=== PATIENT | female | born 1945 | race Caucasian/White ===

== ENCOUNTER 2018-09-12 20:57 | Observation (INO) | payer MEDICARE ==
[2018-09-12 21:23] LABS: #Basophils 0.1 thou/uL (0.0-0.2); #Eosinphils 0.1 thou/uL (0.0-0.7); #Lymphocytes 2.5 thou/uL (1.20-3.40); #Neutrophils 6.7 thou/uL (1.40-6.50); %Basophils 0.8 % (0.0-1.0); %Eosinophils 0.6 % (0.0-10.0); %Monocytes 9.8 % (0.0-10.0); %Neutrophils 64.9 % (42.0-75.0); Hemoglobin 15.6 g/dL (12.0-16.0); Mean Corpuscular HGB CONC 33.4 g/dL (32.0-36.0); Mean Corpuscular Hemoglobin 30.8 pg (27.0-31.0); Mean Corpuscular Volume 92.2 fL (78.0-98.0); Mean Platelet Volume 6.2 fL (7.4-10.4); Platelet Count 257 thou/uL (130-400); Red Blood Cell (RBC) Count 5.08 mill/uL (4.20-5.40); White Blood Cell (WBC) Count 10.3 thou/uL (4.8-10.8)
[2018-09-12 21:36] LABS: ALT (SGPT) 16 U/L (8-55); AST (SGOT) 20 U/L (5-34); Albumin 4.5 g/dL (3.4-4.8); Alkaline Phosphatase 78 U/L (40-150); Anion Gap 14 mmol/L (10-20); BUN (Urea Nitrogen) 16 mg/dL (9.8-20.1); Bilirubin, Total 0.4 mg/dL (0.2-1.2); CK (CPK) 94 U/L (29-168); Calc. Creatinine Clearance 0 mL/min (70-130); Calcium 10.2 mg/dL (7.8-10.44); Carbon Dioxide 27 mmol/L (23-31); Chloride 98 mmol/L (98-107); Estimated GFR-MDRD 43; Globulin 3.1 g/dL (2.4-3.5); Glucose 132 mg/dL (83-110); Lipase 66 U/L (8-78); Potassium 3.4 mmol/L (3.5-5.1); Protein, Total 7.6 g/dL (6.0-8.3); Sodium 136 mmol/L (136-145)
[2018-09-12 21:38] LABS: CKMB 2.1 ng/mL (0-6.6); Troponin I Less than 0.010 ng/mL (< 0.028)
[2018-09-12] MEDS ORDERED: Metoprolol Tartrate 5 MG/5 ML VIAL ONE (22:17)
[2018-09-12 22:44] LABS: Bacteria/HPF None Seen HPF (None Seen); Bilirubin Negative (Negative); Blood, Urine Trace (Negative); Clarity Clear (Clear); Crystals/HPF None Seen HPF (Negative); Glucose, Urine (Dipstick) Negative (Negative); Hyaline Casts/LPF NONE SEEN LPF (0-3 Hyaline); Leukocyte Trace (Negative); Nitrite Negative (Negative); Protein, Urine (Dipstick) Negative (Neg-Trace); RBC/HPF 0-3 HPF (0-3); Specific Gravity, Urine 1.015 (1.005-1.030); Squamous Epithelial 0-3 HPF (0-3); Urobilinogen 0.2 mg/dL (0.2-1.0); WBC/HPF 0-3 HPF (0-3)
--- NOTE | 2018-09-12 23:25 | RAD ---
CHEST ONE VIEW: History: Chest pain. FINDINGS: Cardiac silhouette is magnified by projection. Pulmonary vasculature is unremarkable. Mediastinum is midline with aortic calcification. No lobar consolidation or evidence of pneumothorax. Cardiac monito r leads overlie the chest. IMPRESSION: 1. Atherosclerosis. 2. No active cardiopulmonary abnormalities are otherwise demonstrated. POS: [facility]
[2018-09-13] MEDS ORDERED: Nitroglycerin 2% Ointment 1 INCH/1 GM Packet ONE (00:31)
[2018-09-13] MEDS ORDERED: Ondansetron ODT 4 MG TAB SL PRN (01:29)
[2018-09-13] MEDS ORDERED: Ondansetron PF 4 MG/2 ML Vial IVP PRN ×2 (01:29→06:03)
[2018-09-13] MEDS ORDERED: Acetaminophen 325 MG TAB PO PRN (01:29)
[2018-09-13] MEDS ORDERED: Nitroglycerin 2% Ointment 1 INCH/1 GM Packet TOP SCH (01:30)
[2018-09-13 02:12] LABS: Troponin I 0.012 ng/mL (< 0.028)
[2018-09-13 05:26] LABS: Troponin I Less than 0.010 ng/mL (< 0.028)
[2018-09-13] MEDS ORDERED: Ondansetron ODT 4 MG TAB PO PRN (06:03)
[2018-09-13] MEDS ORDERED: Nitroglycerin 0.4 MG TAB (25 Tab Bottle) SL PRN (06:03)
[2018-09-13] MEDS ORDERED: Labetalol HCl 100 MG/20 ML VIAL SLOW IVP PRN (06:03)
[2018-09-13] MEDS ORDERED: hydrALAZINE 20 MG/ML VIAL SLOW IVP PRN (06:03)
[2018-09-13] MEDS ORDERED: Acetaminophen 500 MG TAB PO PRN (06:03)
[2018-09-13 06:05] VITALS: BMI 27.8
[2018-09-13] MEDS ORDERED: Sodium Chloride 0.9% 500 ML IV SCH (06:15)
[2018-09-13] MEDS ORDERED: Levothyroxine Sodium 75 MCG TAB PO SCH (06:30)
[2018-09-13] MEDS ORDERED: Aspirin 325 MG TAB PO SCH (08:00)
[2018-09-13] MEDS: Enoxaparin Sodium 40 MG/0.4 ML SYRINGE SC SCH (08:28)
[2018-09-13] MEDS: ALPRAZolam 0.5 MG TAB PO SCH ×3 (08:30→21:05)
[2018-09-13] MEDS: Aspirin 325 mg Enteric Coated Tablet PO SCH (08:31)
[2018-09-13] MEDS ORDERED: Losartan 25 MG TAB PO SCH (09:00)
[2018-09-13] MEDS ORDERED: Hydrochlorothiazide 25 MG TAB PO SCH ×2 (09:00)
--- NOTE | 2018-09-13 10:42 | HP ---
In [facility] the patient listed as Alma Patricio. DATE OF ADMISSION: 09/12/2018 DATE OF SERVICE: 09/13/2018 PRIMARY CARE PHYSICIAN: Paulo Carmona M.D. CHIEF COMPLAINT: Dizziness, presyncope. 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 She has had episodes of panic regarding her anxiety, was initiated on Lexapro 5 mg x2-3 days on an outpatient basis, but had exact same episode that brought her to the em ergency room Thursday evening, previously was discussed. The patient has not had any chest pain or gage rtness of breath, but is overdue for cardiac workup. It has been several years since her last echo a nd carotid Doppler. The patient had been doing compression stockings to lower extremities for varico se veins, but stopped apparently approximately 1 year ago, has had significantly cold feet, just with out swelling here recently after she has been titrated on her diuretics and remained stable on them p reviously. The patient was found to have significantly elevated blood pressure in the emergency depa rtment up in the 200s systolic. She did have dizziness symptoms that were alleviated by getting bloo d pressure down with p.r.n. and nitro paste which the patient still has on this morning. She is amb ulatory to the restroom without difficulty. Troponins x3 were negative. Discussed with the patient and the patient's granddaughter at bedside. Outpatient had ordered Cardiology consultation with Dr. Castañeda to further evaluate lower extremiti es as well as workup the patient on a cardiac presentation. Discussed getting patient worked up on i npatient basis at this point in time and titrating blood pressure medications. The patient verbalize d understanding, had no acute other concerns. More formal review of symptoms, no fever, no chills, no fatigue, no cough, no congestion, no runny no se, no shortness of breath, no chest pain, no palpitations. Positive dizziness, positive presyncope with vision changes, mild headache. No facial droop. No change in speech. No weakness. Positive n ausea, no vomiting, no diarrhea, no constipation. Positive panic disorder. Positive anxiety. ALLERGIES: Augmentin, MORPHINE. PAST MEDICAL/SURGICAL HISTORY: History of colorectal cancer, hypothyroidism, hypertension, panic dis order, neuropathy, history of lung cancer, a temporary ostomy and then takedown, functional diarrhea at baseline, hyperlipidemia. Prior hernia repair surgery, major depression, benzodiazepine dependenc y, anxiety. Prior physicians include Dr. Jc Ophthalmology, ____ Hematology/Oncology, Dr. Marino Dermatology , specifically lung cancer is small cell lung. OUTPATIENT MEDICATIONS: Alprazolam 0.5 mg up to t.i.d., metoprolol 100 mg extended release, levothyr oxine, recently increased from 75 mcg to 100 mcg, amiloride, hydrochlorothiazide 5/50 mg daily, Zetia 10 mg, Lexapro 5 mg, magnesium 200 mg, potassium chloride 10 mEq every other day. SOCIAL HISTORY: The patient is a former smoker, quit in 2009. Lives with spouse, is retired. VITAL SIGNS: This morning, temperature 98.3, blood pressure of 148/66, peaked on arrival to floor wa s 212/85, respirations of 12, oxygen saturation 96% on room air, pulse of 53. LABORATORY WORK: White blood count 10.3, hemoglobin of 15.6, platelet count of 257. Troponins x3 0. 01, 0.012, 0.01. TSH of 1.38, lipase of 66, albumin of 4.5, AST of 20, ALT of 16, calcium of 10.2, g lucose of 132, creatinine of 1.22, CO2 of 27, potassium 3.4. Sodium of 136. Urine culture pending. Urinalysis trace blood, trace leukocyte esterase; however, microscopy is normal. Blood cultures are also currently pending and are negative. Chest x-ray reviewed; atherosclerosis; however, no acute cardiopulmonary events. EKG reviewed with inverted T-wave in V2, nominal changes in J point of V1, nothing contiguous, normal variant inverted T waves, otherwise incomplete right bundle branch block, normal sinus rhythm. PHYSICAL EXAMINATION: GENERAL: The patient is alert and oriented, no acute distress. HEENT: Head is normocephalic, atraumatic. Extraocular movements are intact. Sclerae are clear. Or al mucosa is moist. NECK: Supple. HEART: Regular rate and rhythm. No murmurs auscultated. LUNGS: Clear to auscultation bilaterally. No rubs or wheezes. ABDOMEN: Soft, nontender, positive bowel sounds throughout. EXTREMITIES: Lower extremities without cyanosis or edema, borderline cap refill, diminished dorsalis pedis pulses bilaterally. NEUROLOGIC: The patient alert and oriented x3, no focal deficits. Speech is normal. No acute anxie ty on exam this morning. ASSESSMENT AND PLAN: 1. Presyncope. 2. Dehydration with acute kidney injury. 3. Anxiety. 4. Hypertensive urgency 5. Peripheral vascular disease. Consulting Cardiology following carotids and echo as for presyncopal episodes, possibly complicated b y mild dehydration with acute kidney injuries. Given her diuretics, will bolus the patient 500 mL an d follow up with repeat evaluation of kidney function this afternoon as well as replace the patient's mild hypokalemia. The patient may need a stress test at some point in time to help complete workup. Given evidence of peripheral vascular disease we will get arterial Doppler, follow up on Cardiology 's recommendations further. Hypertensive urgency may be causing the patient's symptoms. We will cov er with p.r.n.s. Restart the patient's home medications and start losartan 25 mg to complement. Reg arding the patient's anxiety, we will continue her benzodiazepines and likely restart the patient's L exapro this evening which the patient has only been on for 3 days total. The patient will be put on full dose aspirin and prophylactic Lovenox at this point in time.
--- NOTE | 2018-09-13 12:50 | ULT ---
CAROTID ULTRASOUND: Comparison: None. History: Pre syncope. Technique: Multiplanar grayscale and color doppler images were obtained in a carotid ultrasound. Spec tral analysis of the doppler waveforms were performed. FINDINGS: No significant plaque is seen surrounding either carotid bifurcation. The doppler waveforms are nina l bilaterally. Peak systolic velocity in the right ICA is 63 cm/sec. Peak systolic velocity in the right CCA is 70 c m/sec. The right ICA/CCA ratio is 0.9. Peak systolic velocity in the left ICA is 87 cm/sec. Peak systolic velocity in the left CCA is 89 cm/ sec. The left ICA/CCA ratio is 1.0. Both vertebral arteries demonstrate antegrade flow without focal stenosis. IMPRESSION: No evidence of hemodynamically significant stenosis. POS: [facility]
--- NOTE | 2018-09-13 13:51 | ULT ---
BILATERAL LOWER EXTREMITY ARTERIAL DOPPLER DUPLEX INCLUDING COLOR AND SPECTRAL DOPPLER IMAGING: History: 73-year-old female with history of diminished peripheral pulses. Technique: Exam performed from groin to ankle bilaterally including visualization of common femoral artery, prof unda femoral, artery, superficial femoral artery, popliteal artery, anterior tibial artery, posterior tibial artery and dorsalis pedis artery. FINDINGS: On the right side there is biphasic flow down to the level of the popliteal artery with monophasic fl ow of the posterior tibial artery and dorsalis pedis and biphasic flow of the anterior tibial artery with focal abnormal high velocity at the anterior tibial artery at 251 cm/sec. On the left side there is monophasic flow throughout the entire left lower extremity with some abnorm al decreased velocities except for the mid left superficial femoral artery with velocities within nor mal limits. These measurements and findings are certainly indicative of significant proximal stenosis on the left side, probably above the level of the common femoral artery. IMPRESSION: Markedly abnormal left lower extremity arterial vascular duplex examination with monophasic flow thro ughout and abnormal decreased velocities throughout the entire left lower extremity except for the mi ddle superficial femoral artery which is within normal limits. This is indicative of significant sten otic or occlusive disease at or above the level of the left common femoral artery. Moderate disease i nvolving the right lower extremity with focal abnormal increased velocity in the anterior tibial junie ry. Consider follow up abdominal and bilateral lower extremity runoff CT angiogram for further assessment recommended. POS: [facility]
[2018-09-13 14:33] LABS: Anion Gap 11 mmol/L (10-20); BUN (Urea Nitrogen) 14 mg/dL (9.8-20.1); Calc. Creatinine Clearance 70 mL/min (70-130); Carbon Dioxide 25 mmol/L (23-31); Chloride 102 mmol/L (98-107); Estimated GFR-MDRD 69; Glucose 155 mg/dL (83-110); Magnesium 1.4 mg/dL (1.6-2.6); Potassium 3.3 mmol/L (3.5-5.1); Sodium 135 mmol/L (136-145)
--- NOTE | 2018-09-13 17:22 | CON ---
DATE OF CONSULTATION: 09/13/2018 HISTORY OF PRESENT ILLNESS: The patient is a 73-year-old woman with a history of hypertension who presented with weakness and lightheadedness. The patient has no known previous cardiac history. She has a long history of hypertension. The patient states that recently she has developed increasing dizziness. She denies have any loss of consciousness. The patient denies have any chest pain or dyspnea. The patient was noted to have a markedly elevated blood pressure and was admitted for further evaluation. The patient denies having any PND or orthopnea. PAST MEDICAL HISTORY: 1. Hypertension. 2. Dyslipidemia. 3. Lung carcinoma. 4. Colorectal carcinoma. 5. Neuropathy. PAST SURGICAL HISTORY: Colorectal surgery, lung surgery and hernia surgery. MEDICATIONS: Zetia 10 daily, alprazolam 0.5 t.i.d., metoprolol 100 XL daily, amiloride/HCTZ 5/50 daily, and Synthroid 75 daily. REVIEW OF SYSTEMS: Ten-point system is noticeable for pain associated with neuropathy. Ten-point otherwise unremarkable. FAMILY HISTORY: Strong family history of heart disease. ALLERGIES: MORPHINE AND PENICILLIN. PHYSICAL EXAMINATION: GENERAL: Well-developed woman in no acute distress. VITAL SIGNS: Blood pressure 148/66. NECK: No jugular venous distention. LUNGS: Clear to auscultation. HEART: Regular rate and rhythm, normal S1, S2, no murmurs. ABDOMEN: Nondistended with a colostomy. EXTREMITIES: Showed no edema. VASCULAR: Her distal pulses are diminished. LABORATORY: Her sodium is 136, creatinine 3.4, chloride 98, bicarbonate 27, creatinine 1.2, glucose 132, troponin less than 0.012. Her white blood cell count 10.3, hemoglobin 15.6, hematocrit 56.0, platelet 257. Her EKG reveals her to have normal sinus rhythm with a right bundle branch block. IMPRESSION: 1. Hypertension, poorly controlled. 2. Peripheral vascular disease. 3. History of lung carcinoma. 4. History of colorectal carcinoma. 5. Tobacco abuse. 6. Dyslipidemia. This patient presents with poorly controlled hypertension. She appears to also have periods of low BP. Losartan has been added to the patient's medical regimen. The patient needs to have close monitoring of blood pressure and heart rate. The patient has evidence of peripheral vascular disease; however, she does have palpable pulses and the patient does not have symptoms of claudication. From a cardiac standpoint, it is imperative she will be started on aspirin. We will continue the patient on Zetia and recheck her serum lipid panel. We will follow this patient with you through her hospitalization. [facility]
[2018-09-13] MEDS ORDERED: Potassium Chloride 40 MEQ in Sodium Chloride 0.9% 500 ML IVPB SCH (19:30)
[2018-09-13] MEDS ORDERED: Magnesium 2 GM/50 ML 2 GM in Premix Bag 1 BAG IVPB SCH (19:30)
[2018-09-14 05:05] LABS: #Eosinphils 0.1 thou/uL (0.0-0.7); #Lymphocytes 2.5 thou/uL (1.20-3.40); #Monocytes 0.7 thou/uL (0.11-0.59); #Neutrophils 3.1 thou/uL (1.40-6.50); %Basophils 0.6 % (0.0-1.0); %Eosinophils 1.3 % (0.0-10.0); %Lymphocytes 38.7 % (21.0-51.0); %Monocytes 11.3 % (0.0-10.0); %Neutrophils 48.1 % (42.0-75.0); Hemoglobin 14.1 g/dL (12.0-16.0); Mean Corpuscular HGB CONC 32.7 g/dL (32.0-36.0); Mean Corpuscular Hemoglobin 31.8 pg (27.0-31.0); Mean Corpuscular Volume 97.1 fL (78.0-98.0); Mean Platelet Volume 6.6 fL (7.4-10.4); Platelet Count 293 thou/uL (130-400); RBC Distribution Width 11.4 % (11.5-14.5); Red Blood Cell (RBC) Count 4.45 mill/uL (4.20-5.40); White Blood Cell (WBC) Count 6.4 thou/uL (4.8-10.8)
[2018-09-14 05:32] LABS: ALT (SGPT) 10 U/L (8-55); AST (SGOT) 15 U/L (5-34); Albumin 3.6 g/dL (3.4-4.8); Alkaline Phosphatase 55 U/L (40-150); Anion Gap 11 mmol/L (10-20); BUN (Urea Nitrogen) 12 mg/dL (9.8-20.1); Bilirubin, Total 0.5 mg/dL (0.2-1.2); Calc. Creatinine Clearance 81 mL/min (70-130); Calcium 9.3 mg/dL (7.8-10.44); Carbon Dioxide 27 mmol/L (23-31); Chloride 105 mmol/L (98-107); Estimated GFR-MDRD 82; Globulin 2.5 g/dL (2.4-3.5); Glucose 96 mg/dL (83-110); Potassium 3.6 mmol/L (3.5-5.1); Protein, Total 6.1 g/dL (6.0-8.3); Sodium 139 mmol/L (136-145)
[2018-09-14] MEDS ORDERED: Levothyroxine Sodium 75 MCG TAB PO SCH (06:00)
[2018-09-14] MEDS: ALPRAZolam 0.5 MG TAB PO SCH (07:44)
[2018-09-14] MEDS: Aspirin 325 mg Enteric Coated Tablet PO SCH (07:44)
[2018-09-14] MEDS: Enoxaparin Sodium 40 MG/0.4 ML SYRINGE SC SCH (07:45)
[2018-09-14 12:08] VITALS: BP 142/64; TEMP 98.6
--- NOTE | 2018-09-14 14:10 | CT ---
CT ANGIO OF ABDOMEN AND PELVIS AND LOWER EXTREMITIES PERFORMED WITH INTRAVENOUS CONTRAST ENHANCEMENT: History: Diminished peripheral pulses with an abnormal left lower extremity arterial duplex examinati on. Comparison: Ultrasound study, 09-13-18. FINDINGS: The lung bases are clear. The liver and spleen are within normal limits of size. There is a hepatic cyst seen adjacent to the f alciform ligament, it measures 2.1 cm. The pancreas shows no mass or ductal dilatation. Gallbladder r egion appears unremarkable. The right and left adrenal glands show a small mass involving the right adrenal gland which does not have characteristic features of an adenoma. It measures 11 mm in size. The left adrenal gland is unre markable. There are numerous large renal cysts on the right. Some of these have what is either enhanc ement or more likely, calcification associated with some septa. The largest of these measures 6.8 cm in size but there are numerous other large cyst, some of which measure in the 4 cm range. There is at least one smaller cyst on the left side that measures 1.7 cm. There does not appear to be any cortic al thinning associated with these findings. There is no significant periaortic or mesenteric adenopat hy. There is a very large abdominal wall hernia which is just to the left of midline with herniation of small and large bowel without signs of obstruction. There is colonic diverticulitis noted. Angiographic portion of this study shows a normal caliber aorta. The celiac and superior mesenteric a rteries are normal in appearance. There is atherosclerotic change at the origin of the right renal ar raeann which shows some mild stenosis. Left renal artery is normal in appearance. There is marked ather osclerotic change at the aortoiliac bifurcation with prominent calcified plaque and marked narrowing to the origin of both common iliac arteries, more so on the left. On the right side, the right lower extremity runoff does demonstrate moderate narrowing, somewhat dif ficult to assess, at the origin of the right common iliac artery due to densely calcified plaque. The right internal iliac artery also shows moderate atherosclerotic change and external iliac arteries s how moderate calcified plaque formation and mild to moderate narrowing along its course. There is als o plaque and mild stenosis of the common femoral artery and origin of the superficial femoral artery. The profunda femoral artery is patent. There is no significant narrowing of the right superficial fe moral artery until the level of the adductor canal where there is a moderately severe stenosis. The p opliteal artery is patent with atherosclerotic change. There is 3 vessel runoff to the foot which bec omes very faint distally which is felt to be related to the timing of the contrast bolus. On the left side, there appears to be a fairly severe focal narrowing of the origin of the left commo n iliac artery, again difficult to assess due to the calcified plaque. There is also extensive plaque at the origin of the left internal iliac artery which is markedly narrowed and there is moderate carolyn rowing of the mid portion of the left external iliac artery. The common femoral artery is very small but there is a patent superficial femoral artery with only areas of mild narrowing along its course. The profunda femoral artery is also patent. Popliteal is small but patent. There is atherosclerotic c hange. There is 3 vessel runoff which becomes very faint distally, again probably related to bolus ti long. IMPRESSION: 1. Numerous right renal cysts, some of which have septation which appear to have calcification associ ated although there could be some enhancement of some of the septal avila. This would be better asses sed with the CT done with renal mass protocol. There is a smaller cyst or possibly two cysts within t he left kidney and there is also hepatic cyst and splenic cyst, although with an exophytic lesion inv olving the spleen which may represent a complex cyst or may represent a small splenial. 2. Approximately 11 mm indeterminate right adrenal mass. 3. Large anterior abdominal hernia which is slightly to the left of midline just below the level of t he umbilicus. No obstruction associated with this. 4. Colonic diverticulosis. 5. Fairly extensive aortoiliac disease, specifically, this is at the bifurcation. 6. On the right side, there is moderate narrowing of the common iliac artery and along the course of the external iliac artery and a fairly high grade areas of narrowing of the distal superficial femora l artery at the adductor canal with three vessel runoff. 7. On the left side, there is severe stenosis of the left common iliac artery near its origin. Also f airly pronounced narrowing of the origin of the left internal iliac artery and areas of narrowing slime ng the course of the external iliac with very small vessels distally with three vessel runoff to the left leg. POS: [facility]
--- NOTE | 2018-09-15 01:23 | DIS ---
DATE OF ADMISSION: 09/12/2018 DATE OF DISCHARGE: 09/14/2018 PRIMARY CARE PHYSICIAN: Paulo Carmona M.D. CHIEF COMPLAINT: Presyncopal episode. ADMISSION DIAGNOSES: Presyncope, dehydration, anxiety, hypertensive urgency, acute kidney injury, hypokalemia. DISCHARGE DIAGNOSES: Include hypertension; anxiety, resolved; dehydration, resolved; acute kidney injury; peripheral vascular disease; right adrenal mass, polycystic organs of abdomen including the liver, renal, and spleen diverticulosis. PRESENTING HISTORY OF PRESENT ILLNESS: Patient has had couple episodes of acute onset of nausea, dizziness, diaphoresis as well as postural instability was not related to position change specifically. Patient's blood pressure on arrival to emergency department was in the 200 systolic. Patient's symptoms greatly improved once blood pressure was dropped with p.r.n. and nitro paste. Patient has not had a cardiac workup for some time. Echo showed preserved ejection fraction by diastolic dysfunction with normal BNP. Carotid Dopplers were normal without significant stenosis. Patient was attempted being set up for workup for peripheral vascular disease, lower extremity duplex did show markedly abnormal left lower extremity arterial vasculature with monophasic pulses through femoral artery except superficial branch indicative of likely more proximal disease not able to be evaluated by ultrasound. Right lower extremity with moderate disease, slightly worsening around the anterior tibial artery. Recommended CT angiogram with runoff study. CT angiogram with runoff lower extremities showed patient with diverticulosis without findings known to patient was unknown to this prior. Large anterior abdomen hernia, patient has known about for a long time when speaking with her. No pain or incarceration. Patient with multiple cystic structures in kidneys, liver, and spleen, patient has known about this for some time. She has had a history of cancer. She has had multiple scans including long chest, abdomen, and pelvis, which is well documented these in the past; however, patient did not verbalize prior knowledge of a right indeterminate right adrenal mass, which was discussed with her. Patient may be eager to show this to her cancer doctors to compare scans. Patient was ambulatory prior to discharge had resolved hypokalemia. Following replacement of magnesium, patient did have hypomagnesemia. Following replacement and rehydration, transition of stronger diuretic to angiotensin receptor jacky, losartan on her blood pressure medication regimen. Patient was deemed stable for discharge while under observation, given normal echo and carotids. Patient continued to have sinus issues and was diagnosed with sinusitis, was not improved on an outpatient basis with steroid treatment for ear effusion was sent home on Bactrim double strength 1 tab p.o. b.i.d. Patient 's losartan is 50 mg, 12.5 mg once daily. Discontinuation of Amaryl, hydrochlorothiazide, continuation of metoprolol succinate 100 mg once daily, guaifenesin 600 mg extended release b.i.d., levothyroxine 100 mcg continued home dose, Zetia continued home 10 mg, alprazolam continue 0.5 t.i.d. p.r.n. anxiety. Patient may hold or discontinue magnesium and potassium chloride supplements given, she is no longer on Amaryl. DISCHARGE FOLLOWUP: With Pauol Carmona M.D. in approximately 7 days. We will follow up adrenal mass, laboratory work prior to seeing on an outpatient basis. May consider Endocrinology referral an outpatient basis or comparison with [facility] imaging. We will follow up with Cardiology consultation, which was mainly on outpatient basis with Dr. Castañeda, Dr. Chaudhary was seen. Patient acutely inpatient, did speak with Dr. Castañeda who will go ahead and see patient as planned for peripheral vascular disease. Patient still may need a surgical intervention, but at least at this point in time would recommend at least annual monitoring to further comment on the angiogram portion, patient with extensive aortoiliac disease on the right, moderate narrowing of the common iliac, high-grade narrowing of distal superficial femoral artery, left sides to severe stenosis on left common iliac. DISCHARGE DIET: Heart healthy. DISCHARGE CONDITION: Fair. DISCHARGE ACTIVITY: As tolerated. MTDD
== END 2018-09-14 14:05 | disposition home or self-care (01) ==
LOC: SCSER 20:57 → ERHOLD 23:10 → 2SW 09-13 01:14
PROVIDERS: ADMIT Family Medicine; ATTEND Family Medicine
DX: I10 Essential (primary) hypertension (principal); F41.9 Anxiety disorder, unspecified; N17.9 Acute kidney failure, unspecified; E86.0 Dehydration; I73.9 Peripheral vascular disease, unspecified; E27.8 Other specified disorders of adrenal gland; E78.5 Hyperlipidemia, unspecified; R55 Syncope and collapse; R42 Dizziness and giddiness; Z79.899 Other long term (current) drug therapy; Z88.0 Allergy status to penicillin; Z88.5 Allergy status to narcotic agent
CPT/HCPCS: 71045; 75635; 80048; 80053; 82088; 82533; 82550; 82553; 83605; 83690; 83735; 83880; 84484 ×3; 85025; 87040; 87086; 93005; 93306; 93880; 93923; 96365; 96366; 96367; 96372 ×2; 96375; 99285; G0378 ×2; 36415; 81003; 81015; 84443; 96361; 96374; J1650; J3480; J7050; Q0162

== ENCOUNTER 2018-10-01 13:32 | Outpatient (CLI) | payer MEDICARE ==
[~2018-10-01 13:32] MED LIST: Gadobenate Dimeglumine 529 MG/1 ML (20ML VIAL) ONE
--- NOTE | 2018-10-01 17:34 | MRI ---
MRI ABDOMEN WITH AND WITHOUT CONTRAST: 10/01/18 HISTORY: Abnormal mass of the right adrenal gland. COMPARISON: CT 09/14/18. TECHNIQUE: Multiplanar and multisequence MRI is performed prior to and after the intravenous administration of c ontrast. FINDINGS: The signal index of the right adrenal gland on the in of phase images is 249 and out of phase is 123. The splenic signal in phase is 212 and out of phase is 204. The adrenal spleen CSI ratio: 0.51. Adre nal signal intensity index 50.6%. These indicate lipid rich adenoma. The adrenal nodule measures only 8 mm in size. Polycystic kidneys bilaterally, worse in the right kidney with innumerable large and small cysts. No abnormal enhancement is seen to involve the cysts. There is moderate atherosclerotic plaque of the aorta. Background marrow signal of the spine is nina l. Small T2 hyperintense foci are present of the liver without enhancement suggesting cysts. Gallbladder is unremarkable. Pancreas is unremarkable. No intrahepatic or extrahepatic biliary dilata tion. No significant pleural effusion. T2 hyperintense focus of the spleen suggests a lymphangioma. Fat and bowel containing left sided ventral hernia is present. No evidence of obstruction. IMPRESSION: 1. Lipid rich right adrenal adenoma. Calculations are above. 2. Multiple simple cysts of the right kidney as well as hemorrhagic cysts. 3. Bowel and fat containing left sided ventral hernia. 4. Simple hepatic cysts. 5. Splenic lymphangioma. POS: [facility]
== END 2018-10-01 13:33 | disposition home or self-care (01) ==
LOC: SCSMRI 13:32
PROVIDERS: ATTEND Family Medicine
DX: E27.9 Disorder of adrenal gland, unspecified (principal); D35.00 Benign neoplasm of unspecified adrenal gland; N28.1 Cyst of kidney, acquired; K76.89 Other specified diseases of liver; D18.1 Lymphangioma, any site
CPT/HCPCS: 74183; 82565; A9579